=== PATIENT | male | born 1965 | race Caucasian/White ===

== ENCOUNTER 2023-12-11 16:24 | Emergency (ER) | payer OTHER, SELFPAY ==
[2023-12-11 16:27] VITALS: BP 139/92; PULSE 89; RESP 16; TEMP 37; O2SAT 98
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
[2023-12-11] MEDS: Ondansetron O.D.T. 4 MG TABEF PO (17:15)
[2023-12-11] MEDS: Ibuprofen 600 MG TAB PO (17:15)
[2023-12-11] MEDS: Acetaminophen 500 MG TAB 1000 MG PO (17:15)
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
--- NOTE | 2023-12-11 18:45 | DI.CT_ITS ---
Exam(s) CT UPPER EXTREMITY LT WO EXAM: CT UPPER EXTREMITY LT WO CLINICAL HISTORY: Not left shoulder pain abnormal x-ray. TECHNIQUE: Imaging Protocol: Axial computed tomography images with coronal and sagittal reformatted images were created and reviewed. COMPARISON: CR,XR XR SHOULDER LT COMPLETE 2+V from 12/11/2023 FINDINGS: Bones: The osseous structures and articular surfaces are intact. There is again seen a left acromio clavicular joint separation. The clavicle is elevated above the superior border of the acromion cons istent with a type 3 dislocation. No cellulitic or osteomyelitic changes are identified. Mild degen erative changes are seen at the acromioclavicular and glenohumeral joints. No lytic or sclerotic les ions are identified. Soft Tissues: Normal. IMPRESSION: Type 3 left AC joint separation. RADIATION DOSE DELIVERED: Total DLP Total DLP DATA REPOSITORY: All CT scans at this facility are submitted to the National Radiology Data Registry (NRDR) Dose Index Registry (DIR) with the [employer] ([employer]). RADIATION OPTIMIZATION: All CT scans at this facility use at least one of these dose optimization te chniques: automated exposure control; mA and/or kV adjustment per patient size (includes targeted exa ms where dose is matched to clinical indication); or iterative reconstruction.
[2023-12-11] MEDS: fentaNYL 100 MCG/2 ML VIAL IVP (21:00)
[2023-12-11] MEDS: Normal Saline 500 ML IV (21:00)
[2023-12-11] MEDS: Aspirin 81 MG CHEW PO (21:26)
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
--- NOTE | 2023-12-13 16:18 | NUR.NOTE ---
At the patient request the imaging reports were faxed to [facility]. . Nursing Note:
== END 2023-12-11 22:12 | disposition home or self-care (01) ==
PROVIDERS: Emergency Provider Emergency Medicine; PCP Internal Medicine
DX: S43.102A Unspecified dislocation of left acromioclavicular joint, initial encounter (principal); V18.4XXA Pedal cycle driver injured in noncollision transport accident in traffic accident, initial encounter; Y92.482 Bike path as the place of occurrence of the external cause; Y93.55 Activity, bike riding
CPT/HCPCS: 96374; 99284; 73030; 73200; J3010